=== PATIENT | female | born 1990 | race African-American/Black ===

== ENCOUNTER 2018-09-29 23:31 | Emergency (ER) | payer SELFPAY ==
--- NOTE | 2018-09-30 00:15 | ED Physician Chart ---
ED Chief Complaint/HPI - Patient Information Date Seen:: 09/30/18 Time Seen:: 00:00 Chief Complaint:: cough History of Present Illness:: Patient's had a cough productive of green sputum for last 3 days. Her temperature was 101 at 1800 tonight. No vomiting or diarrhea. Patient did not receive influenza vaccination this season. Allergies:: Allergies Allergy/AdvReac Type Severity Reaction Status Date / Time guaifenesin [From Robitussin] Allergy Verified 09/29/18 23:51 Vitals:: Vital Signs - 8 hr 09/29/18 23:40 Temp 97.3 F HR 110 RR 18 BP 118/72 O2 Sat % 100 Historian:: Patient Review:: Nurse's Note Reviewed ED Review of Systems - Review of Systems General/Constitutional: Fever Skin: No skin lesions Head: No headache Eyes: No loss of vision ENT: No earache, No sore throat Neck: No neck pain Cardio Vascular: No chest pain, No palpitations Pulmonary: Cough GI: No nausea, No vomiting, No diarrhea G/U: No dysuria Musculoskeletal: No bone or joint pain Psychiatric: No prior psych history Hematopoietic: No bruising Allergic/Immuno: No urticaria Neurological: No syncope, No focal symptoms, No weakness ED Past Medical History - Past Medical History Past Medical History: Other (chronic bronchitis) Family History: HTN Social History: Smoker (patient smokes one pack of cigarettes a day), Other ( smokes 1 pack cigarettes a day) Psychiatricy History: None Medication: None ED Physical Exam - Physical Examination General/Constitutional: Awake, Well-developed, well-nourished, Alert, No distress Head: Atraumatic Eyes: Lids, conjuctiva normal, PERRL Skin: Nl inspection, No rash, No skin lesions, No ecchymosis, Well hydrated, No lymphadenopathy ENMT: External ears, nose nl, TM canals nl, Nasal exam nl, Lips, teeth, gums nl , Oropharynx nl, Tonsils nl Neck: No nuchal rigidity Respiratory: Nl effort/Exclusion, Clear to Auscultation, No Wheeze/Rhonchi/Rales Cardio Vascular: RRR, No murmur, gallop, rubs, NL S1 S2 GI: No tenderness/rebounding/guarding, No organomegaly, No hernia, Normal BS's, Nondistended, No mass/bruits, No McBurney tenderness Extremities: Normal digits & nails Neuro/Psych: Alert/oriented ED Assessment - Assessment General Assessment: I wanted to test the patient for influenza A and B but she declined. I offered to prescribe an antibiotic for the patient which would have been a Z-pack. Patient stated that when she goes to [place] they usually prescribe a metered- dose inhaler which I also offered to prescribe although she had no wheezing. However when I stated I would not prescribe a cough syrup for her she eloped from the emergency department. ED Septic Shock - . Is Septic Shock (SBP<90, OR Lactate>4 mmol\L) present?: No - <6hrs of presentation: Vital Signs: Vital Signs - 8 hr 09/29/18 23:40 Temp 97.3 F HR 110 RR 18 BP 118/72 O2 Sat % 100 ED Reassessment (Disposition) - Reassessment Reassessment Condition:: Unchanged - Diagnosis Diagnosis:: Acute viral bronchitis - Patient Disposition Discharge/Transfer:: Elope/AWOL Condition at Disposition:: Stable, Unchanged
== END 2018-09-30 00:37 | disposition left against medical advice (07) ==
LOC: ER 23:31
DX: J20.8 Acute bronchitis due to other specified organisms (principal); F17.210 Nicotine dependence, cigarettes, uncomplicated; Z88.8 Allergy status to other drugs, medicaments and biological substances
CPT/HCPCS: Z7502